=== PATIENT | female | born 1965 | race Caucasian/White ===

== ENCOUNTER 2020-09-25 20:16 | Emergency (ER) | payer OTHER ==
[2020-09-25 20:29] VITALS: BP 112/64
[2020-09-25] MEDS ORDERED: OXYCODONE-ACETAMINOPHEN 5-325 MG TABLET PO ONE (21:04)
--- NOTE | 2020-09-25 21:05 | ER Document Report ---
ED Medical Screen (RME) - General Stated Complaint: FALL,RIGHT ARM INJURY Time Seen by Provider: 09/25/20 20:38 Mode of Arrival: Wheelchair Information source: Patient Notes: Patient is a 54-year-old female comes emergency room complaining of right shoulder pain. Patient states she tripped and fell with her arm above her head and landing on the floor and now she is unable to move her arm. She has discomfort and pain on the shoulder itself. She denies any loss of consciousness or any head trauma. She had no nausea vomiting or diarrhea. Patient has feeling in her distal hand. Past medical history is pertinent for osteoporosis. Physical examination: Patient is a well-nourished well-developed 54-year-old female no apparent distress on examination but does appear very uncomfortable. Patient is seen holding her arm into her body. Cardiac: Patient displays a regular rate and rhythm at 79 bpm on monitor and no murmurs auscultated. Lungs: Bilateral breath sounds with breath sounds decreased with no rhonchi rales or wheeze noted. Upper extremity right: Examination patient's area concern is her right shoulder. Palpation of the area shows there to be a defect in the shoulder itself it feels anteriorly dislocated also possibility of a fracture proximal humerus. 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 I have greeted and performed a rapid initial assessment of this patient. A comprehensive ED assessment and evaluation of the patient, analysis of test results and completion of the medical decision making process will be conducted by additional ED providers. Dictation of this chart was performed using voice recognition software; therefore, there may be some unintended grammatical e rrors. Physical Exam - Vital signs Vitals: Temp Pulse Resp BP Pulse Ox 98.1 F 74 16 112/64 97 09/25/20 20:24 09/25/20 20:24 09/25/20 20:24 09/25/20 20:24 09/25/20 20:24 Course - Vital Signs Vital signs: Temp Pulse Resp BP Pulse Ox 98.1 F 74 16 112/64 97 09/25/20 20:24 09/25/20 20:24 09/25/20 20:24 09/25/20 20:24 09/25/20 20:24
--- NOTE | 2020-09-25 21:54 | RADIOLOGY REPORT (SQ) ---
EXAM DESCRIPTION: CLAVICLE RIGHT, two views CLINICAL HISTORY: 54 years Female, Fall questionable fracture COMPARISON: None. FINDINGS: There is inferior dislocation of the glenohumeral joint. The humeral head is impacted onto the undersurface of the glenoid. The clavicle is intact. AC joint appears normal. Visualized portion of the right chest is unremarkable. IMPRESSION: 1. Inferior dislocation of the right glenohumeral joint. 2. The clavicle is intact. No fracture.
--- NOTE | 2020-09-25 22:00 | RADIOLOGY REPORT (SQ) ---
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 FINDINGS: 3 views were obtained. The humeral head is inferiorly and medially displaced relative to the glenoid on the externally rotated projection. However, alignment appears improved on the additional obtained lateral projection of the humerus. No additional osseous anomalies are appreciated. IMPRESSION: No definite acute fracture. However, on the frontal projection of the humerus, the humeral head is inferiorly/medially displaced relative to the glenoid, suggesting an anterior shoulder dislocation. On the subsequently obtained lateral projection of the humerus, the humeral head appears to align with the glenoid, raising the possibility of spontaneous reduction of anterior shoulder dislocation.
--- NOTE | 2020-09-25 22:01 | RADIOLOGY REPORT (SQ) ---
EXAM DESCRIPTION: SHOULDER RIGHT 2 OR MORE VIEWS [facility]: XR SHOULDER 2 OR MORE VIEWS Views: 3 CLINICAL HISTORY: 54 years Female; Questionable dislocation/humeral fracture; Shoulder pop while doing the humerus x-rays COMPARISON: None. FINDINGS: On initial image obtained at 2120, there is anterior dislocation of the humeral head. On the subsequent images, obtained at 2125 and 2126, the humeral head returns to anatomic alignment. No acute fractures. Adjacent ribs are intact. No hyperdense foreign bodies. IMPRESSION: 1. Anterior dislocation of the right humeral head, which reduced during the examination. 2. Alignment is now anatomic. 3. No acute fracture.
--- NOTE | 2020-09-25 23:07 | ER Document Report ---
ED Extremity Problem, Upper - General Chief Complaint: Shoulder Injury Stated Complaint: FALL,RIGHT ARM INJURY Time Seen by Provider: 09/25/20 20:38 Primary Care Provider: MADDI MCKOY JR, DO [ACTIVE PROVISIONAL STAFF] - Follow up as needed Mode of Arrival: Wheelchair Information source: Patient, Relative Notes: I originally saw patient in triage and ordered the x-rays of her shoulder. This is the history she gave. Patient is a 54-year-old female comes emergency room complaining of right shoulder pain. Patient states she tripped and fell with her arm above her head and landing on the floor and now she is unable to move her arm. She has discomfort and pain on the shoulder itself. She denies any loss of consciousness or any head trauma. She had no nausea vomiting or diarrhea. Patient has feeling in her distal hand. Past medical history is pertinent for osteoporosis. TRAVEL OUTSIDE OF THE [place] IN LAST 30 DAYS: No - HPI Patient complains to provider of: Injury, Pain, Shoulder Onset: Just prior to arrival Recent injury: Yes Where: Home Quality of pain: Achy, Sharp, Throbbing Severity of pain: Moderate Pain Level: 3 Context: Blow Arm and Shoulder (Right): 1 - Area of pain discomfort and deformity Associated symptoms: None Exacerbated by: Movement Relieved by: Rest, Positioning Similar symptoms previously: No Recently seen / treated by doctor: No - Related Data Allergies/Adverse Reactions: No Known Allergies Allergy (Verified 09/26/20 00:39) Home Medications: vitamins Past Medical History - Social History Smoking Status: Former Smoker Cigarette use (# per day): Yes Chew tobacco use (# tins/day): No Smoking Education Provided: No Frequency of alcohol use: None Drug Abuse: None Lives with: Family Family History: Reviewed & Not Pertinent Review of Systems - Review of Systems Constitutional: No symptoms reported EENT: No symptoms reported Cardiovascular: No symptoms reported Respiratory: No symptoms reported Gastrointestinal: No symptoms reported Genitourinary: No symptoms reported Female Genitourinary: No symptoms reported Musculoskeletal: See HPI, Joint pain, Muscle pain Skin: No symptoms reported Hematologic/Lymphatic: No symptoms reported Neurological/Psychological: No symptoms reported -: Yes All other systems reviewed and negative Physical Exam - Vital signs Vitals: Temp Pulse Resp BP Pulse Ox 98.1 F 74 16 112/64 97 09/25/20 20:24 09/25/20 20:24 09/25/20 20:24 09/25/20 20:24 09/25/20 20:24 Interpretation: Normal - Notes Notes: Physical examination: Patient is a well-nourished well-developed 54-year-old female no apparent distress on examination but does appear very uncomfortable. Patient is seen holding her arm into her body. Cardiac: Patient displays a regular rate and rhythm at 79 bpm on monitor and no murmurs auscultated. Lungs: Bilateral breath sounds with breath sounds decreased with no rhonchi rales or wheeze noted. Upper extremity right: Examination patient's area concern is her right shoulder. Palpation of the area shows there to be a defect in the shoulder itself it feels anteriorly dislocated also possibility of a fracture proximal humerus. 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 Also noted patient has good sensation in the distal tips of her fingers. Course - Re-evaluation Re-evalutation: 09/26/20 00:47 Patient was originally taken back to x-ray and the x-ray x ray service technician came out after doing the x-ray stating that as he was positioning the arm for pitcher he felt it pop back into place and patient had full range of motion. We repeated the x-rays for a post reduction and was read by the radiologist as being totally reduced and in good placement. Reexamination of patient showed that she had good music agent strength in the right hand good cap refill in the nailbeds of the fingers of the right hand range of motion was not tested completely although she did have passive range of motion with no pain or discomfort. I felt that given it had popped back in on its own that any exaggerated motions would be detrimen stacy and may cause a redislocation so patient was placed in a sling and swath to give her comfort and stability. Patient's been instructed to use the sling and swath for at least 5 days to follow-up with orthopedist I have given her the Ortho on-call today for follow-up if she needs 1. And have expressed to her that she should not try to lift her arm above her head even to take a shower at this point. She is to ice it down. I did write her for some pain medication for a couple of days however it did not go through so I gave her a sixpack of [place] here. - Vital Signs Vital signs: Temp Pulse Resp BP Pulse Ox 98.1 F 74 16 112/64 97 09/25/20 20:24 09/25/20 20:24 09/25/20 20:24 09/25/20 20:24 09/25/20 20:24 - Laboratory Results Critical Laboratory Results Reviewed: No Critical Results - Radiology Results Critical Radiology Results Reviewed: Yes Attending or Supervising Physician who Reviewed Radiology: SANDHYA LINDSEY - Shoulder dislocation with reduction spontaneously Discharge - Discharge Clinical Impression: Hx of reduction of closed dislocation Dislocation, shoulder, anterior Qualifiers: Encounter type: initial encounter Laterality: right Qualified Code(s): S43.014A - Anterior dislocation of right humerus, initial encounter Condition: Stable Disposition: HOME, SELF-CARE Instructions: Oral Narcotic Medication ([facility]), Shoulder Dislocation ([facility]), Sling as Treatment ([facility]) Additional Instructions: Home and rest. Medication as prescribed. You can also take ibuprofen 600 mg 3 times a day for the inflammation. Ice the area 3-4 times a day. Use the sling at least for for 5 days and do not raise your arm or shoulder above your head. I am giving you the name of the orthopedist senior applications analyst today you can contact his office to see if he can accommodate you. These are things that if you do not take care of him from the start they have a tendency to get worse over time. Should you have any concerns or problems or if it goes out of socket again come back to ER for reevaluation. Prescriptions: Hydrocodone/Acetaminophen [[place] 5-325 mg Tablet] 1 tab PO Q4 PRN #12 tablet PRN Reason: Referrals: MADDI MCKOY JR, DO [ACTIVE PROVISIONAL STAFF] - Follow up as needed
[2020-09-25] MEDS ORDERED: HYDROCODONE/ACETAMINOPHEN 5-325 MG (6 TAB/ER DISP) PO PRN (23:33)
== END 2020-09-25 23:55 | disposition home or self-care (01) ==
LOC: ER 20:16
DX: S43.014A Anterior dislocation of right humerus, initial encounter (principal); W19.XXXA Unspecified fall, initial encounter; Y92.008 Other place in unspecified non-institutional (private) residence as the place of occurrence of the external cause; Z79.899 Other long term (current) drug therapy; Z87.891 Personal history of nicotine dependence
CPT/HCPCS: 99284